=== PATIENT | male | born 1970 | race Caucasian/White ===

== ENCOUNTER 2024-02-01 12:50 | Outpatient (REF) | payer BC, SELFPAY ==
--- NOTE | ~2024-02-01 | US_ITS ---
EXAMINATION: US RETROPERITONEAL COMPLETE (RENAL) CLINICAL INFORMATION: Hematuria. COMPARISON: Ultrasound abdomen limited 04/25/2020 TECHNIQUE: Real-time imaging of the kidneys and bladder. FINDINGS: RIGHT KIDNEY: 13.2 x 6.9 x 8.2 cm (SAG x AP x TRV). The kidney is normal in size, contour, and echogenicity. Renal cortical thickness is normal. No renal calculi or focal parenchymal lesions. Mild hydronephrosis. LEFT KIDNEY: 14.4 x 7.4 x 6.7 cm (SAG x AP x TRV). The kidney is normal in size, contour, and echogenicity. Renal cortical thickness is normal. No hydronephrosis. 1.3 cm simple cyst in the mid kidney. No imaging follow-up is recommended. 0.6 cm nonobstructing calculus in the lower kidney. BLADDER: Well distended and normal. Bilateral ureteral jets are demonstrated. Prevoid bladder volume is 202 mL. Postvoid bladder volume is 17 mL. ADDITIONAL FINDINGS: Enlarged prostate measuring 61 mL. US/US retroperitoneal comp IMPRESSION: Enlarged prostate. Mild right hydronephrosis. 6 mm nonobstructing calculus in the left lower kidney.
== END 2024-02-01 12:51 | disposition home or self-care (01) ==
LOC: HO.HMGCX 12:50
PROVIDERS: PCP Hospitalist; Visit Provider Hospitalist
DX: R31.9 Hematuria, unspecified (principal)
CPT/HCPCS: 76770